=== PATIENT | female | born 1985 | race Caucasian/White ===

== ENCOUNTER 2016-11-04 17:26 | Emergency (ER) | payer OTHER ==
[~2016-11-04 17:26] MED LIST: SENN1TAB11 PO
[2016-11-04 17:27] VITALS: BP 131/74; PULSE 118; RESP 18; TEMP 97.3; O2SAT 99
[2016-11-04] MEDS ORDERED: SODIUM CHLOR 0.9% 1000 ML INJ 1,000 ML IV SCH (17:39)
[2016-11-04] MEDS ORDERED: SODIUM CHLORIDE 0.9% FLUSH 10 ML FLUSH IV FLUSH PRN (17:45)
[2016-11-04] MEDS ORDERED: KETOROLAC TROMETHAMINE 30 MG/ML (IVP) VIAL IVP ONE (17:45)
[2016-11-04] MEDS ORDERED: ONDANSETRON HCL 4 MG/2 ML VIAL IVP ONE (17:45)
[2016-11-04 17:46] VITALS: O2SAT 100
[2016-11-04 18:00] LABS: AUTOMATED NEUTROPHIL # 1.1 TH/MM3 (1.8-7.7); BASOPHIL % 0.9 % (0.0-2.0); EOSINOPHIL % 0.9 % (0.0-4.0); HEMATOCRIT 43.9 % (35.0-46.0); HEMO FLAGS DIFF FINAL; LYMPH % 40.9 % (9.0-44.0); LYMPHOCYTE # 0.9 TH/MM3 (1.0-4.8); MEAN CELL VOLUME 91.2 FL (80.0-100.0); MEAN CORPUSCULAR HEMOGLOBIN 29.9 PG (27.0-34.0); MEAN CORPUSCULAR HGB CONC 32.8 % (32.0-36.0); MONO % 10.9 % (0.0-8.0); NEUT % 46.4 % (16.0-70.0); PLATELET COUNT 133 TH/MM3 (150-450); RED BLOOD COUNT 4.81 MIL/MM3 (4.00-5.30); RED CELL DISTRIBUTION WIDTH 13.3 % (11.6-17.2); WHITE BLOOD COUNT 2.3 TH/MM3 (4.0-11.0)
--- NOTE | 2016-11-04 18:10 | PD ---
HPI Chief Complaint: Abdominal Pain Time Seen by Provider: 17:34 Travel History International Travel<30 days: No Contact w/Intl Traveler<30days: No Traveled to known affect area: No History of Present Illness HPI The patient is a 31-year-old female who presents emergency department for abdominal pain. The patient is a 3 day history of right upper quadrant abdominal pain that radiates to the right back and is associated with nausea. The patient does note a decreased appetite but denies any vomiting. The patient has minimal dysuria but denies any frequency, urgency, hematuria, vaginal discharge, or vaginal bleeding. Last missed a cycle was one to 2 weeks ago. The patient's only previous abdominal surgery was ventral hernia repair. The patient denies any history pancreatitis. She does note the pain is worse with coughing, palpation, but is unsure of its worse with eating as she's had decreased appetite for the last 3 days secondary to persistent nausea. The patient recently moved to the local area from [place] and does not have a local primary physician. Patient also notes fevers as high as 103 at home. PFSH Past Medical History Anxiety: Yes Depression: Yes Gastrointestinal Disorders: Yes ( Hx of gall stones) ?: Not : 2 Para: 1 Miscarriage: 0 : 0 Past Surgical History Other Surgery: Yes (ventral hernia) Social History Alcohol Use: Yes (occasional) Tobacco Use: Yes (5 cig's per day) Substance Use: No Allergies-Medications (Allergen,Severity, Reaction): Coded Allergies: Bee Sting (Verified Allergy, Severe, 11/04/16) Reported Meds & Prescriptions Reported Meds & Active Scripts Active Zofran Odt (Ondansetron Odt) 4 Mg Tab 4 Mg SL Q6HR PRN Review of Systems Except as stated in HPI: all other systems reviewed are Neg General / Constitutional: Positive: Fever HENT: No: Lightheadedness Cardiovascular: No: Chest Pain or Discomfort Respiratory: Positive: Cough, No: Shortness of Breath Gastrointestinal: Positive: Nausea, Abdominal Pain, No: Vomiting, Diarrhea Genitourinary: Positive: Dysuria, No: Urgency, Frequency, Hematuria, Discharge , Vaginal Bleeding Musculoskeletal: No: Myalgias, Arthralgias Neurologic: No: Dizziness Physical Exam Narrative GENERAL: Awake, alert, pleasant 31 year-old female who appears her stated age and is in no acute respiratory distress. SKIN: Focused skin assessment warm/dry. HEAD: Atraumatic. Normocephalic. EYES: Pupils equal and round. No scleral icterus. No injection or drainage. ENT: No nasal bleeding or discharge. Slightly dry mucous members. NECK: Trachea midline. No JVD. CARDIOVASCULAR: Regular, tachycardic with a heart rate at 115. RESPIRATORY: No accessory muscle use. Clear to auscultation. Breath sounds equal bilaterally. GASTROINTESTINAL: Abdomen tender to palpation right upper quadrant. Back: Mild right CVA tenderness. MUSCULOSKELETAL: No obvious deformities. No clubbing. No cyanosis. No edema. NEUROLOGICAL: Awake and alert. No obvious cranial nerve deficits. Motor grossly within normal limits. Normal speech. PSYCHIATRIC: Appropriate mood and affect; insight and judgment normal. Data Data Last Documented VS Vital Signs Date Time Temp Pulse Resp B/P Pulse Ox O2 Delivery O2 Flow Rate FiO2 11/04/16 19:02 97 16 120/60 97 Room Air 11/04/16 17:27 97.3 Orders Complete Blood Count With Diff (11/04/16 17:39) Comprehensive Metabolic Panel (11/04/16 17:39) Lipase (11/04/16 17:39) Urinalysis - C+S If Indicated (11/04/16 17:39) Us Abdomen Gallbladder (11/04/16 ) Iv Access Insert/Monitor (11/04/16 17:39) Ecg Monitoring (11/04/16 17:39) Oximetry (11/04/16 17:39) Ondansetron Inj (Zofran Inj) (11/04/16 17:45) Sodium Chlor 0.9% 1000 Ml Inj (Ns 1000 M (11/04/16 17:39) Sodium Chloride 0.9% Flush (Ns Flush) (11/04/16 17:45) Ketorolac Inj (Toradol Inj) (11/04/16 17:45) Sodium Chlor 0.9% 1000 Ml Inj (Ns 1000 M (11/04/16 19:00) Morphine Inj (Morphine Inj) (11/04/16 19:15) Ondansetron Inj (Zofran Inj) (11/04/16 19:15) Potassium Chloride (Kcl) (11/04/16 19:15) Labs Laboratory Tests Test 11/04/16 11/04/16 17:55 19:45 White Blood Count 2.3 TH/MM3 Red Blood Count 4.81 MIL/MM3 Hemoglobin 14.4 GM/DL Hematocrit 43.9 % Mean Corpuscular Volume 91.2 FL Mean Corpuscular Hemoglobin 29.9 PG Mean Corpuscular Hemoglobin 32.8 % Concent Red Cell Distribution Width 13.3 % Platelet Count 133 TH/MM3 Mean Platelet Volume 8.1 FL Neutrophils (%) (Auto) 46.4 % Lymphocytes (%) (Auto) 40.9 % Monocytes (%) (Auto) 10.9 % Eosinophils (%) (Auto) 0.9 % Basophils (%) (Auto) 0.9 % Neutrophils # (Auto) 1.1 TH/MM3 Lymphocytes # (Auto) 0.9 TH/MM3 Monocytes # (Auto) 0.3 TH/MM3 Eosinophils # (Auto) 0.0 TH/MM3 Basophils # (Auto) 0.0 TH/MM3 CBC Comment DIFF FINAL Differential Comment Sodium Level 136 MEQ/L Potassium Level 3.2 MEQ/L Chloride Level 99 MEQ/L Carbon Dioxide Level 30.7 MEQ/L Anion Gap 6 MEQ/L Blood Urea Nitrogen 5 MG/DL Creatinine 0.87 MG/DL Estimat Glomerular Filtration 75 ML/MIN Rate Random Glucose 120 MG/DL Calcium Level 8.2 MG/DL Total Bilirubin 0.2 MG/DL Aspartate Amino Transf 36 U/L (AST/SGOT) Alanine Aminotransferase 37 U/L (ALT/SGPT) Alkaline Phosphatase 57 U/L Total Protein 7.4 GM/DL Albumin 3.4 GM/DL Lipase 157 U/L Urine Color LIGHT-YELLOW Urine Turbidity CLEAR Urine pH 6.5 Urine Specific [place] 1.005 Urine Protein NEG mg/dL Urine Glucose (UA) NEG mg/dL Urine Ketones NEG mg/dL Urine Occult Blood NEG Urine Nitrite NEG Urine Bilirubin NEG Urine Urobilinogen LESS THAN 2.0 MG/DL Urine Leukocyte Esterase NEG Urine WBC LESS THAN 1 /hpf Urine Squamous Epithelial 1 /hpf Cells Urine Bacteria RARE /hpf Microscopic Urinalysis Comment CULT NOT INDICATED MDM Medical Decision Making Medical Screen Exam Complete: Yes Emergency Medical Condition: Yes Medical Record Reviewed: Yes Interpretation(s) Laboratory Tests Test 11/04/16 17:55 White Blood Count 2.3 TH/MM3 Red Blood Count 4.81 MIL/MM3 Hemoglobin 14.4 GM/DL Hematocrit 43.9 % Mean Corpuscular Volume 91.2 FL Mean Corpuscular Hemoglobin 29.9 PG Mean Corpuscular Hemoglobin 32.8 % Concent Red Cell Distribution Width 13.3 % Platelet Count 133 TH/MM3 Mean Platelet Volume 8.1 FL Neutrophils (%) (Auto) 46.4 % Lymphocytes (%) (Auto) 40.9 % Monocytes (%) (Auto) 10.9 % Eosinophils (%) (Auto) 0.9 % Basophils (%) (Auto) 0.9 % Neutrophils # (Auto) 1.1 TH/MM3 Lymphocytes # (Auto) 0.9 TH/MM3 Monocytes # (Auto) 0.3 TH/MM3 Eosinophils # (Auto) 0.0 TH/MM3 Basophils # (Auto) 0.0 TH/MM3 CBC Comment DIFF FINAL Differential Comment Sodium Level 136 MEQ/L Potassium Level 3.2 MEQ/L Chloride Level 99 MEQ/L Carbon Dioxide Level 30.7 MEQ/L Anion Gap 6 MEQ/L Blood Urea Nitrogen 5 MG/DL Creatinine 0.87 MG/DL Estimat Glomerular Filtration 75 ML/MIN Rate Random Glucose 120 MG/DL Calcium Level 8.2 MG/DL Total Bilirubin 0.2 MG/DL Aspartate Amino Transf 36 U/L (AST/SGOT) Alanine Aminotransferase 37 U/L (ALT/SGPT) Alkaline Phosphatase 57 U/L Total Protein 7.4 GM/DL Albumin 3.4 GM/DL Lipase 157 U/L Ultrasound reveals a normal examination Differential Diagnosis Differential diagnosis includes acute cholecystitis, symptomatic cholelithiasis , choledocholithiasis, pancreatitis, gastritis, peptic ulcer disease, lower lobe pneumonia, pyelonephritis, nephrolithiasis. Narrative Course IV was established, labs are drawn and sent, and the patient was placed on cardiac telemetry monitoring and continuous pulse oximetry monitoring. Ultrasound of the gallbladder was ordered. The patient states narcotics make her sick and requests no appears. Therefore, the patient was administered Zofran, Toradol, and IV fluids. The patient's white count is mildly low, platelets are also low, she denies any history of chronic alcohol use or HIV. LFTs and lipase are unremarkable. Ultrasound is negative for cholelithiasis/ cholecystitis. The patient was reevaluated at 6:52 PM, her symptoms had significantly improved. She was still tachycardic at 100, therefore, second liter of IV fluids were ordered. The patient has a UA pending, will be signed off to the oncoming physician at 7 PM. If UA is negative and the patient tolerates a by mouth challenge, she can be discharged home. Diagnosis Primary Impression: Abdominal pain Qualified Code: R10.11 - Right upper quadrant abdominal pain Additional Impression: Nausea Patient Instructions: General Instructions Med/Other Pt SpecificInfo: Prescription(s) given Scripts Ondansetron Odt (Zofran Odt)4 Mg Tab4 Mg SL Q6HR PRN (Nausea/Vomiting) #7 TAB Ref 0 Prov:Fer Gordon MD 11/04/16 Condition: Stable Fer Gordon MD Nov 04, 2016 18:10
[2016-11-04 18:23] LABS: ALKALINE PHOSPHATASE 57 U/L (45-117); TOTAL BILIRUBIN ADULT 0.2 MG/DL (0.2-1.0)
[2016-11-04 18:28] LABS: ALT (GPT) 37 U/L (10-53); ANION GAP 6 MEQ/L (5-15); AST (GOT) 36 U/L (15-37); BICARBONATE 30.7 MEQ/L (21.0-32.0); BLOOD UREA NITROGEN 5 MG/DL (7-18); CHLORIDE 99 MEQ/L (98-107); GLOMERULAR FILTRATION RATE 75 ML/MIN (>89); POTASSIUM 3.2 MEQ/L (3.5-5.1); SODIUM (NA) 136 MEQ/L (136-145)
--- NOTE | 2016-11-04 18:45 | RADRPT ---
EXAM DATE/TIME: 11/04/2016 18:11 [facility] COMPARISON: No previous studies available for comparison. INDICATIONS : Right upper quadrant pain. MEDICAL HISTORY : . Cholelithiasis. Depression. Anxiety. SURGICAL HISTORY : Ventral hernia repair. ENCOUNTER: Initial ACUITY: 1 day PAIN SCORE: 6/10 LOCATION: Right upper quadrant MEASUREMENTS: LIVER: 15.9 cm length COMMON DUCT: 4 mm RIGHT KIDNEY: 10.2 x 5.8 x 4.5 cm FINDINGS: LIVER: Normal echotexture without focal lesion or ductal dilatation. COMMON DUCT: No intraluminal mass or stone visualized. GALLBLADDER: Contains no stones, demonstrates no wall thickening or pericholecystic fluid. PANCREAS: The visualized portions are within normal limits. RIGHT KIDNEY: No evidence of hydronephrosis, stone, or mass. CONCLUSION: Normal examination for a patient of this age. Michael Rapp MD on November 04, 2016 at 18:40 Board Certified Radiologist. This report was verified electronically.
[2016-11-04] MEDS ORDERED: ZOFR4TAB3 SL (18:53)
[2016-11-04] MEDS ORDERED: SODIUM CHLOR 0.9% 1000 ML INJ 1,000 ML IV ONE (19:00)
[2016-11-04 19:02] VITALS: BP 120/60; PULSE 97; RESP 16; O2SAT 97
--- NOTE | 2016-11-04 19:10 | PD ---
Physical Exam Narrative General: The patient is a well-developed well-nourished female in no acute distress. Head and Neck exam: Head is normocephalic atraumatic. Eyes: EOMI, pupils are equal round and reactive to light. Nose: Midline septum with pink mucous membranes Mouth: Dentition unremarkable. Moist mucus membranes. Posterior oropharynx is not erythematous. No tonsillar hypertrophy. Uvula midline. Airway patent. Neck: No palpable lymphadenopathy. No nuchal rigidity. No thyromegaly. Cardiovascular: Regular rate and rhythm without murmurs, gallops, or rubs. No pulse deficit to the extremities. Lungs: Clear to auscultation bilaterally. No wheezes, rhonchi, or rales. Abdomen: Soft, with tenderness on palpation in the right upper quadrant of the abdomen, no other tenderness on palpation of the other quadrants of the abdomen. No guarding, rebound, or rigidity. Negative Tennille sign. Normal bowel sounds are audible. No point tenderness over McBurney's point. Extremities: No clubbing, cyanosis, or edema. 2+ pulses in all 4 extremities. No calf tenderness on palpation. Back: No spinous process tenderness to palpation. No costovertebral angle tenderness to palpation. Neurologic Exam: Grossly nonfocal. Skin Exam: No rash noted. Intact skin that is warm and dry. Data Data Last Documented VS Vital Signs Date Time Temp Pulse Resp B/P Pulse Ox O2 Delivery O2 Flow Rate FiO2 11/04/16 19:02 97 16 120/60 97 Room Air 11/04/16 17:27 97.3 Orders Complete Blood Count With Diff (11/04/16 17:39) Comprehensive Metabolic Panel (11/04/16 17:39) Lipase (11/04/16 17:39) Urinalysis - C+S If Indicated (11/04/16 17:39) Us Abdomen Gallbladder (11/04/16 ) Iv Access Insert/Monitor (11/04/16 17:39) Ecg Monitoring (11/04/16 17:39) Oximetry (11/04/16 17:39) Ondansetron Inj (Zofran Inj) (11/04/16 17:45) Sodium Chlor 0.9% 1000 Ml Inj (Ns 1000 M (11/04/16 17:39) Sodium Chloride 0.9% Flush (Ns Flush) (11/04/16 17:45) Ketorolac Inj (Toradol Inj) (11/04/16 17:45) Sodium Chlor 0.9% 1000 Ml Inj (Ns 1000 M (11/04/16 19:00) Morphine Inj (Morphine Inj) (11/04/16 19:15) Ondansetron Inj (Zofran Inj) (11/04/16 19:15) Potassium Chloride (Kcl) (11/04/16 19:15) Labs Laboratory Tests Test 11/04/16 11/04/16 17:55 19:45 White Blood Count 2.3 TH/MM3 Red Blood Count 4.81 MIL/MM3 Hemoglobin 14.4 GM/DL Hematocrit 43.9 % Mean Corpuscular Volume 91.2 FL Mean Corpuscular Hemoglobin 29.9 PG Mean Corpuscular Hemoglobin 32.8 % Concent Red Cell Distribution Width 13.3 % Platelet Count 133 TH/MM3 Mean Platelet Volume 8.1 FL Neutrophils (%) (Auto) 46.4 % Lymphocytes (%) (Auto) 40.9 % Monocytes (%) (Auto) 10.9 % Eosinophils (%) (Auto) 0.9 % Basophils (%) (Auto) 0.9 % Neutrophils # (Auto) 1.1 TH/MM3 Lymphocytes # (Auto) 0.9 TH/MM3 Monocytes # (Auto) 0.3 TH/MM3 Eosinophils # (Auto) 0.0 TH/MM3 Basophils # (Auto) 0.0 TH/MM3 CBC Comment DIFF FINAL Differential Comment Sodium Level 136 MEQ/L Potassium Level 3.2 MEQ/L Chloride Level 99 MEQ/L Carbon Dioxide Level 30.7 MEQ/L Anion Gap 6 MEQ/L Blood Urea Nitrogen 5 MG/DL Creatinine 0.87 MG/DL Estimat Glomerular Filtration 75 ML/MIN Rate Random Glucose 120 MG/DL Calcium Level 8.2 MG/DL Total Bilirubin 0.2 MG/DL Aspartate Amino Transf 36 U/L (AST/SGOT) Alanine Aminotransferase 37 U/L (ALT/SGPT) Alkaline Phosphatase 57 U/L Total Protein 7.4 GM/DL Albumin 3.4 GM/DL Lipase 157 U/L Urine Color LIGHT-YELLOW Urine Turbidity CLEAR Urine pH 6.5 Urine Specific [place] 1.005 Urine Protein NEG mg/dL Urine Glucose (UA) NEG mg/dL Urine Ketones NEG mg/dL Urine Occult Blood NEG Urine Nitrite NEG Urine Bilirubin NEG Urine Urobilinogen LESS THAN 2.0 MG/DL Urine Leukocyte Esterase NEG Urine WBC LESS THAN 1 /hpf Urine Squamous Epithelial 1 /hpf Cells Urine Bacteria RARE /hpf Microscopic Urinalysis Comment CULT NOT INDICATED MDM Medical Record Reviewed: Yes Supervised Visit with ESTEFANIA: No Interpretation(s) Last Impressions Gall Bladder Ultrasound 11/04/16 0000 Signed Impressions: Service Date/Time: Friday, November 04, 2016 18:11 - CONCLUSION: Normal examination for a patient of this age. Michael Rapp MD Narrative Course During the course of the patients emergency department visit, the patients history, examination, and differential diagnosis were reviewed with the patient. The patient had IV access obtained and blood work sent for analysis. The patient's case was checked out to me by Dr. Gordon. He requested that I review the patient's urinalysis. The patient presented with right upper quadrant/right flank pain with reported fever earlier in the day. The patient was initially provided normal saline 1 L IV fluid bolus, Zofran 4 mg IV, Toradol 30 mg IV. The patient was given a second liter of normal saline during her evaluation as she has yet to produce a urine sample for analysis. The patients laboratory studies were reviewed and remarkable for a white count of 2.3, hemoglobin 14.4, platelets 133 with a monocytosis at 10.9 suggestive of a viral process. CMP is remarkable for potassium of 3.2 which will be supplemented orally, BUN 5, glucose 120, lipase 157 Radiology studies were reviewed and remarkable for an ultrasound of the gallbladder that shows a normal examination, no acute abnormality noted. The patient had continued discomfort and was given morphine 4 mg IV and a repeat dose of Zofran 4 mg IV. Urinalysis is unremarkable. The patient will be discharged with prescription for Zofran for nausea. She is instructed to push fluids with an electrolyte rich solution such as Gatorade or Pedialyte. The patient is resting comfortably and feels better, is alert and in no distress. The patients results and examination findings were discussed with the patient. The repeat examination is unremarkable and benign. The history, exam, diagnostic testing, and current condition do not suggest any significant pathology to warrant further testing, continued ED treatment, admission, or surgical evaluation at this point. The vital signs have been stable. The patient does not have uncontrollable pain, intractable vomiting, or other significant symptoms. The patient's condition is stable and appropriate for discharge. The patient will pursue further outpatient evaluation with a primary care physician or other designated or consulting physician as indicated in the discharge instructions. The patient expressed understanding and was agreeable with this plan. Diagnosis Primary Impression: Abdominal pain Qualified Code: R10.11 - Right upper quadrant abdominal pain Additional Impression: Nausea Referrals: Primary Care Physician 2 days Patient Instructions: General Instructions, Viral Syndrome (ED) Departure Forms: Tests/Procedures, Work Release Enter return to work date: Nov 06, 2016 Med/Other Pt SpecificInfo: Prescription(s) given Scripts Ondansetron Odt (Zofran Odt)4 Mg Tab4 Mg SL Q6HR PRN (Nausea/Vomiting) #7 TAB Ref 0 Prov:Fer Gordon MD 11/04/16 Disposition: 01 DISCHARGE HOME Condition: Stable Christa Roman MD Nov 04, 2016 19:10
[2016-11-04] MEDS ORDERED: POTASSIUM CHLORIDE 20 MEQ CONTROLLED RELEASE TAB PO ONE (19:15)
[2016-11-04] MEDS ORDERED: ONDANSETRON HCL 4 MG/2 ML VIAL IV PUSH ONE (19:15)
[2016-11-04] MEDS ORDERED: MORPHINE SULFATE 4 MG/ML INJ IV PUSH ONE (19:15)
[2016-11-04 20:00] LABS: BACTERIA, URINE RARE /hpf; BLOOD, URINE NEG (NEG); COMMENT (UR) CULT NOT INDICATED; CULTURE IF INDICATED CULT NOT INDICATED; GLUCOSE,URINE NEG (NEG); KETONE, URINE NEG (NEG); NITRITE,URINE NEG (NEG); PH, URINE 6.5 (5.0-8.5); SQUAMOUS EPITHELIAL CELL URINE 1 /hpf (0-5); URINE COLOR LIGHT-YELLOW (YELLW/STRAW)
== END 2016-11-04 20:44 | disposition home or self-care (01) ==
LOC: NEPE 17:26
DX: R10.11 Right upper quadrant pain (principal); Z72.0 Tobacco use
CPT/HCPCS: 76705; 80053; 81001; 83690; 85025; 96361; 96374; 96375; 99285; J1885; J2270; J2405; J7030

== ENCOUNTER 2017-10-14 16:07 | Emergency (ER) | payer SELFPAY ==
[~2017-10-14] VITALS: Ht 162.6 cm; Wt 60.0 kg
[~2017-10-14 16:07] MED LIST changes: -SENN1TAB11 PO; +ZOFR4TAB3 SL
[2017-10-14 16:09] VITALS: BP 112/67; PULSE 112; RESP 16; TEMP 97.8; O2SAT 99
[2017-10-14] MEDS ORDERED: SODIUM CHLOR 0.9% 1000 ML INJ 1,000 ML IV SCH (16:31)
--- NOTE | 2017-10-14 16:43 | PD ---
HPI Chief Complaint: GI Complaint Time Seen by Provider: 16:23 Travel History International Travel<30 days: No Contact w/Intl Traveler<30days: No Traveled to known affect area: No History of Present Illness HPI Patient is a 32-year-old female presenting to the emergency department for evaluation of abdominal pain, nausea, vomiting and diarrhea. Patient states her symptoms started Thursday night after eating in a [place] buffet. Other members of her family ate there as well with no issues. Patient reports subjective fevers and chills. Patient states every time she eats something she becomes nauseated and wants to vomit. She also states that when she eats something it runs right through her and she has a watery bowel movement. She reports lower abdominal pain and cramping. Patient states her pain is a 5 out of 10, and cramping in nature. Symptoms are intermittent but constant. Symptom onset was fairly sudden, symptoms are moderate in nature. No alleviating factors other than avoiding oral intake. PFSH Past Medical History Anxiety: Yes Depression: Yes Gastrointestinal Disorders: Yes ( Hx of gall stones) Influenza Vaccination: No ?: Not LMP: 10/07/17 : 2 Para: 1 Miscarriage: 0 : 0 Past Surgical History Other Surgery: Yes (ventral hernia) Social History Alcohol Use: Yes (occasional) Tobacco Use: Yes (1/2 PPD) Substance Use: Yes (MARIJUANA) Allergies-Medications (Allergen,Severity, Reaction): Coded Allergies: bee venom protein (honey bee) (Unverified Allergy, Severe, 12/16/16) Reported Meds & Prescriptions Reported Meds & Active Scripts Active Zofran Odt (Ondansetron Odt) 4 Mg Tab 4 Mg SL Q6HR PRN Macrobid (Nitrofurantoin Monohydrate Macrocrystals) 100 Mg Capsule 100 Mg PO BID Zofran Odt (Ondansetron Odt) 4 Mg Tab 4 Mg SL Q6HR PRN Review of Systems Except as stated in HPI: all other systems reviewed are Neg General / Constitutional: Positive: Fever, Chills Gastrointestinal: Positive: Nausea, Vomiting, Diarrhea, Abdominal Pain, Loss of Appetite Physical Exam Narrative GENERAL: Thin, well-developed, alert female. Presenting in no acute distress. SKIN: Warm and dry. HEAD: Atraumatic. Normocephalic. EYES: Pupils equal and round. No scleral icterus. No injection or drainage. ENT: No nasal bleeding or discharge. Mucous membranes pink and moist. NECK: Trachea midline. No JVD. CARDIOVASCULAR: Tachycardic RESPIRATORY: No accessory muscle use. Clear to auscultation. Breath sounds equal bilaterally. GASTROINTESTINAL: Abdomen soft, tender to palpation bilateral lower quadrants nondistended. Hepatic and splenic margins not palpable. Hypoactive bowel sounds. MUSCULOSKELETAL: Extremities without clubbing, cyanosis, or edema. No obvious deformities. NEUROLOGICAL: Awake and alert. No obvious cranial nerve deficits. Motor grossly within normal limits. Five out of 5 muscle strength in the arms and legs. Normal speech. PSYCHIATRIC: Appropriate mood and affect; insight and judgment normal. Data Data Last Documented VS Vital Signs Date Time Temp Pulse Resp B/P (MAP) Pulse Ox O2 Delivery O2 Flow Rate FiO2 10/14/17 18:44 107 19 140/81 (100) 98 Room Air 10/14/17 16:09 97.8 Orders Orders Complete Blood Count With Diff (10/14/17 16:31) Comprehensive Metabolic Panel (10/14/17 16:31) Lipase (10/14/17 16:31) Urinalysis - C+S If Indicated (10/14/17 16:31) Ct Abd/Pel W Iv Contrast(Rout) (10/14/17 16:31) Iv Access Insert/Monitor (10/14/17 16:31) Ecg Monitoring (10/14/17 16:31) Oximetry (10/14/17 16:31) NPO (10/14/17 16:31) Sodium Chlor 0.9% 1000 Ml Inj (Ns 1000 M (10/14/17 16:31) Sodium Chloride 0.9% Flush (Ns Flush) (10/14/17 16:45) Ondansetron Odt (Zofran Odt) (10/14/17 16:45) Urine Culture (10/14/17 16:45) Iohexol 350 Inj (Omnipaque 350 Inj) (10/14/17 17:29) Metronidazole 500 Mg Inj (Flagyl 500 Mg (10/14/17 18:30) Ciprofloxacin 400 Mg Premix (Cipro 400 M (10/14/17 18:30) C Diff Toxin Pcr (10/14/17 18:32) Sodium Chlor 0.9% 1000 Ml Inj (Ns 1000 M (10/14/17 18:45) Ed Discharge Order (10/14/17 21:13) Virus Culture Non Respiratory (10/14/17 19:25) Labs Laboratory Tests Test 10/14/17 16:45 10/14/17 19:25 White Blood Count 11.1 TH/MM3 Red Blood Count 4.52 MIL/MM3 Hemoglobin 13.9 GM/DL Hematocrit 40.2 % Mean Corpuscular Volume 89.0 FL Mean Corpuscular Hemoglobin 30.8 PG Mean Corpuscular Hemoglobin Concent 34.6 % Red Cell Distribution Width 13.4 % Platelet Count 299 TH/MM3 Mean Platelet Volume 7.5 FL Neutrophils (%) (Auto) 75.8 % Lymphocytes (%) (Auto) 15.3 % Monocytes (%) (Auto) 7.9 % Eosinophils (%) (Auto) 0.4 % Basophils (%) (Auto) 0.6 % Neutrophils # (Auto) 8.4 TH/MM3 Lymphocytes # (Auto) 1.7 TH/MM3 Monocytes # (Auto) 0.9 TH/MM3 Eosinophils # (Auto) 0.0 TH/MM3 Basophils # (Auto) 0.1 TH/MM3 CBC Comment DIFF FINAL Differential Comment Urine Color DARK-YELLOW Urine Turbidity HAZY Urine pH 6.0 Urine Specific [place] 1.032 Urine Protein 100 mg/dL Urine Glucose (UA) NEG mg/dL Urine Ketones TRACE mg/dL Urine Occult Blood TRACE Urine Nitrite NEG Urine Bilirubin NEG Urine Urobilinogen LESS THAN 2.0 MG/DL Urine Leukocyte Esterase SMALL Urine RBC 4 /hpf Urine WBC 21 /hpf Urine Squamous Epithelial Cells 14 /hpf Urine Transitional Epithelial Cells 1 /hpf Urine Bacteria MOD /hpf Urine Mucus MANY /lpf Microscopic Urinalysis Comment CULTURE INDICATED Blood Urea Nitrogen 4 MG/DL Creatinine 0.68 MG/DL Random Glucose 114 MG/DL Total Protein 7.6 GM/DL Albumin 3.1 GM/DL Calcium Level 8.7 MG/DL Alkaline Phosphatase 80 U/L Aspartate Amino Transf (AST/SGOT) 19 U/L Alanine Aminotransferase (ALT/SGPT) 31 U/L Total Bilirubin 0.4 MG/DL Sodium Level 134 MEQ/L Potassium Level 3.3 MEQ/L Chloride Level 96 MEQ/L Carbon Dioxide Level 28.1 MEQ/L Anion Gap 10 MEQ/L Estimat Glomerular Filtration Rate 99 ML/MIN Lipase 63 U/L Stool C. difficile Toxin (PCR) NEGATIVE Stl C. difficile Toxin Epiderm 027 PRESUMPTIVE NEGATIVE MDM Medical Decision Making Medical Screen Exam Complete: Yes Emergency Medical Condition: Yes Interpretation(s) Vital Signs Date Time Temp Pulse Resp B/P (MAP) Pulse Ox O2 Delivery O2 Flow Rate FiO2 10/14/17 16:09 97.8 112 16 112/67 (82) 99 Last Impressions Abdomen/Pelvis CT 10/14/17 1631 Signed Impressions: CONCLUSION: 1. Eddy colitis. Raises concern for ulcerative colitis. No obstruction, abscess , or perforation. Laboratory Tests Test 10/14/17 16:45 White Blood Count 11.1 TH/MM3 Red Blood Count 4.52 MIL/MM3 Hemoglobin 13.9 GM/DL Hematocrit 40.2 % Mean Corpuscular Volume 89.0 FL Mean Corpuscular Hemoglobin 30.8 PG Mean Corpuscular Hemoglobin Concent 34.6 % Red Cell Distribution Width 13.4 % Platelet Count 299 TH/MM3 Mean Platelet Volume 7.5 FL Neutrophils (%) (Auto) 75.8 % Lymphocytes (%) (Auto) 15.3 % Monocytes (%) (Auto) 7.9 % Eosinophils (%) (Auto) 0.4 % Basophils (%) (Auto) 0.6 % Neutrophils # (Auto) 8.4 TH/MM3 Lymphocytes # (Auto) 1.7 TH/MM3 Monocytes # (Auto) 0.9 TH/MM3 Eosinophils # (Auto) 0.0 TH/MM3 Basophils # (Auto) 0.1 TH/MM3 CBC Comment DIFF FINAL Differential Comment Urine Color DARK-YELLOW Urine Turbidity HAZY Urine pH 6.0 Urine Specific [place] 1.032 Urine Protein 100 mg/dL Urine Glucose (UA) NEG mg/dL Urine Ketones TRACE mg/dL Urine Occult Blood TRACE Urine Nitrite NEG Urine Bilirubin NEG Urine Urobilinogen LESS THAN 2.0 MG/DL Urine Leukocyte Esterase SMALL Urine RBC 4 /hpf Urine WBC 21 /hpf Urine Squamous Epithelial Cells 14 /hpf Urine Transitional Epithelial Cells 1 /hpf Urine Bacteria MOD /hpf Urine Mucus MANY /lpf Microscopic Urinalysis Comment CULTURE INDICATED Blood Urea Nitrogen 4 MG/DL Creatinine 0.68 MG/DL Random Glucose 114 MG/DL Total Protein 7.6 GM/DL Albumin 3.1 GM/DL Calcium Level 8.7 MG/DL Alkaline Phosphatase 80 U/L Aspartate Amino Transf (AST/SGOT) 19 U/L Alanine Aminotransferase (ALT/SGPT) 31 U/L Total Bilirubin 0.4 MG/DL Sodium Level 134 MEQ/L Potassium Level 3.3 MEQ/L Chloride Level 96 MEQ/L Carbon Dioxide Level 28.1 MEQ/L Anion Gap 10 MEQ/L Estimat Glomerular Filtration Rate 99 ML/MIN Lipase 63 U/L Differential Diagnosis Metabolic abnormality versus gastroenteritis versus diverticulitis versus pancreatitis versus obstruction versus other Narrative Course Patient is a 32-year-old female presenting to emerge department for evaluation of abdominal pain, nausea, vomiting, diarrhea. Patient is tachycardic on arrival, labs and imaging ordered and pending. IV access was established, patient placed on telemetry monitoring continuous pulse oximetry. IV fluids ordered. CBC with a white blood cell count 11.1. Chemistry with a sodium of 134, potassium 3.3. Urinalysis is consistent with UTI. Patient will be started on Macrobid. CT scan the abdomen and pelvis shows pancolitis. Raises concern for ulcerative colitis. No obstruction abscesses or perforation noted. This was discussed with my attending physician. Will attempt to obtain a stool sample for PCR and CDT. Patient is given oral fluid challenge. Heart rate has trended down to 107. Will give patient additional liter of IV fluids now. Patient tolerated oral fluid challenge, she was unable to provide a stool sample. Patient reported feeling better. Patient was encouraged to follow-up with a primary doctor or return to emergency department for any new worsening symptoms. Patient stable for discharge. Findings and plan of care discussed with my attending physician prior to discharge. Diagnosis Primary Impression: Pancolitis Additional Impressions: Diarrhea, infectious, adult Urinary tract infection Qualified Codes: N39.0 - Urinary tract infection, site not specified; R31.9 - Hematuria, unspecified Referrals: Primary Care Physician Patient Instructions: Acute Nausea and Vomiting (ED), General Instructions, Infectious Colitis (ED), Urinary Tract Infection in Women (ED) Additional Instructions: Complete full course of antibiotics as prescribed Maintain adequate fluid intake Maintain a bland, easy to digest diet, increasing as tolerated Follow-up with your primary doctor Return to emergency department for any new or worsening symptoms Med/Other Pt SpecificInfo: Prescription(s) given Scripts Ondansetron Odt (Zofran Odt) 4 Mg Tab 4 MG SL Q6HR Y for Nausea/Vomiting, #10 TAB 0 Refills Prov: Neela Barragan 10/14/17 Nitrofurantoin Monohydrate Macrocrystals (Macrobid) 100 Mg Capsule 100 MG PO BID for Infection, #14 CAP 0 Refills Prov: Neela Barragan 10/14/17 Disposition: 01 DISCHARGE HOME Condition: Stable Neela Barragan Oct 14, 2017 16:43
[2017-10-14] MEDS ORDERED: ONDANSETRON ODT 4 MG TAB PO ONE (16:45)
[2017-10-14] MEDS ORDERED: SODIUM CHLORIDE 0.9% FLUSH 10 ML FLUSH IV FLUSH PRN (16:45)
[2017-10-14 17:10] LABS: AUTOMATED NEUTROPHIL # 8.4 TH/MM3 (1.8-7.7); BASOPHIL # 0.1 TH/MM3 (0-0.2); BASOPHIL % 0.6 % (0.0-2.0); EOSINOPHIL % 0.4 % (0.0-4.0); HEMATOCRIT 40.2 % (35.0-46.0); HEMOGLOBIN 13.9 GM/DL (11.6-15.3); LYMPH % 15.3 % (9.0-44.0); LYMPHOCYTE # 1.7 TH/MM3 (1.0-4.8); MEAN CORPUSCULAR HEMOGLOBIN 30.8 PG (27.0-34.0); MEAN CORPUSCULAR HGB CONC 34.6 % (32.0-36.0); MEAN PLATELET VOLUME 7.5 FL (7.0-11.0); MONO % 7.9 % (0.0-8.0); MONOCYTE # 0.9 TH/MM3 (0-0.9); NEUT % 75.8 % (16.0-70.0); PLATELET COUNT 299 TH/MM3 (150-450); RED BLOOD COUNT 4.52 MIL/MM3 (4.00-5.30); RED CELL DISTRIBUTION WIDTH 13.4 % (11.6-17.2); WHITE BLOOD COUNT 11.1 TH/MM3 (4.0-11.0)
[2017-10-14 17:17] LABS: BACTERIA, URINE MOD /hpf; BILIRUBIN, URINE NEG (NEG); BLOOD, URINE TRACE (NEG); GLUCOSE,URINE NEG (NEG); KETONE, URINE TRACE mg/dL (NEG); MUCUS URINE MANY /lpf (OCC); NITRITE,URINE NEG (NEG); SQUAMOUS EPITHELIAL CELL URINE 14 /hpf (0-5); TRANSITIONAL EPI CELLS, URINE 1 /hpf; URINE COLOR DARK-YELLOW (YELLW/STRAW); URINE LEUKOCYTE ESTERASE SMALL (NEG)
[2017-10-14] MEDS ORDERED: IOHEXOL 350 MG/ML 10 ML VIAL (for RAD DIAG) IVCONTRAST ONE (17:29)
[2017-10-14 17:46] LABS: ALBUMIN 3.1 GM/DL (3.4-5.0); AST (GOT) 19 U/L (15-37); BICARBONATE 28.1 MEQ/L (21.0-32.0); BLOOD UREA NITROGEN 4 MG/DL (7-18); CALCIUM 8.7 MG/DL (8.5-10.1); CHLORIDE 96 MEQ/L (98-107); CREATININE 0.68 MG/DL (0.50-1.00); GLOMERULAR FILTRATION RATE 99 ML/MIN (>89); GLUCOSE,RANDOM 114 MG/DL (74-106); SODIUM (NA) 134 MEQ/L (136-145)
[2017-10-14 17:50] LABS: ALKALINE PHOSPHATASE 80 U/L (45-117); ALT (GPT) 31 U/L (10-53); TOTAL BILIRUBIN ADULT 0.4 MG/DL (0.2-1.0); TOTAL PROTEIN 7.6 GM/DL (6.4-8.2)
--- NOTE | 2017-10-14 17:56 | RADRPT ---
EXAM DATE: 10/14/2017 5:28 PM EDT AGE/SEX: 32 years / Female INDICATIONS: Nausea, vomiting, and diarrhea for 4 days. CLINICAL DATA: This is the patient's initial encounter. Patient reports that signs and symptoms have been present for 4 - 6 days and indicates a pain score of 0/10. MEDICAL/SURGICAL HISTORY: None. . Hernia repair, IUD ORAL CONTRAST: No oral contrast ingested. RADIATION DOSE: 8.07 CTDI (mGy) COMPARISON: No prior exams available for comparison. TECHNIQUE: Multiple contiguous axial images were obtained through the abdomen and pelvis following b olus infusion of 89 ml Omnipaque 350 (iohexol) nonionic water-soluble contrast as a single exam dos e. No oral contrast ingested. Using automated exposure control and adjustment of the mA and/or kV ac cording to patient size, the radiation dose was kept as low as reasonably achievable to obtain optima l diagnostic quality images. FINDINGS: Lower Lungs: The visualized lower lungs are clear. Liver: The liver has a homogeneous density without space-occupying lesion. There is no dilation of th e biliary tree. Spleen: Homogeneous density without enlargement. Pancreas: Unremarkable without mass or calcification. Kidneys: Normal in size and shape. No evidence of mass or hydronephrosis. Adrenal Glands: Unremarkable. Aorta: The aorta and proximal iliac vessels are grossly unremarkable without aneurysmal dilation. Bowel/Mesentery: Diffuse circumferential wall thickening throughout the entire colon with relative s paring of the ascending colon. No significant stranding of the surrounding fat. No obstruction. Fluid -filled loops of nondilated small bowel seen within the lower abdomen. Stomach is unremarkable. No fr ee air or free fluid.. Abdominal Wall: Prior ventral hernia repair utilizing mesh. No recurrent hernia or fluid collection. . Retroperitoneum: No evidence of adenopathy in the retrocrural, para-aortic, or deep pelvic regions. Bladder: Contours are smooth. Reproductive Organs: An IUD is seen. The uterus is anteverted. No abnormal masses or calcifications seen. Inguinal: The inguinal region is unremarkable without evidence of adenopathy. Bony Structures: Unremarkable. CONCLUSION: 1. Eddy colitis. Raises concern for ulcerative colitis. No obstruction, abscess, or perforation. Electronically signed by: Robert Nagy MD 10/14/2017 5:55 PM EDT
[2017-10-14] MEDS ORDERED: metroNIDAZOLE 500 MG INJ 100 ML IV ONE (18:30)
[2017-10-14] MEDS ORDERED: CIPROFLOXACIN 400 MG PREMIX 200 ML IV ONE (18:30)
[2017-10-14 18:44] VITALS: BP 140/81; PULSE 107; RESP 19; O2SAT 98
[2017-10-14] MEDS ORDERED: SODIUM CHLOR 0.9% 1000 ML INJ 1,000 ML IV ONE (18:45)
[2017-10-14] MEDS ORDERED: MACR100C2 PO (18:47)
[2017-10-14] MEDS ORDERED: ZOFR4TAB3 SL (18:51)
--- NOTE | 2017-10-14 21:16 | PD ---
Physical Exam Date Seen by Provider: Oct 14, 2017 Time Seen by Provider: 21:14 Data Data Last Documented VS Vital Signs Date Time Temp Pulse Resp B/P (MAP) Pulse Ox O2 Delivery O2 Flow Rate FiO2 10/14/17 18:44 107 19 140/81 (100) 98 Room Air 10/14/17 16:09 97.8 Orders Orders Complete Blood Count With Diff (10/14/17 16:31) Comprehensive Metabolic Panel (10/14/17 16:31) Lipase (10/14/17 16:31) Urinalysis - C+S If Indicated (10/14/17 16:31) Ct Abd/Pel W Iv Contrast(Rout) (10/14/17 16:31) Iv Access Insert/Monitor (10/14/17 16:31) Ecg Monitoring (10/14/17 16:31) Oximetry (10/14/17 16:31) NPO (10/14/17 16:31) Sodium Chlor 0.9% 1000 Ml Inj (Ns 1000 M (10/14/17 16:31) Sodium Chloride 0.9% Flush (Ns Flush) (10/14/17 16:45) Ondansetron Odt (Zofran Odt) (10/14/17 16:45) Urine Culture (10/14/17 16:45) Iohexol 350 Inj (Omnipaque 350 Inj) (10/14/17 17:29) Metronidazole 500 Mg Inj (Flagyl 500 Mg (10/14/17 18:30) Ciprofloxacin 400 Mg Premix (Cipro 400 M (10/14/17 18:30) Enterovirus Pcr (10/14/17 18:32) C Diff Toxin Pcr (10/14/17 18:32) Sodium Chlor 0.9% 1000 Ml Inj (Ns 1000 M (10/14/17 18:45) Ed Discharge Order (10/14/17 21:13) Labs Laboratory Tests Test 10/14/17 16:45 10/14/17 19:25 White Blood Count 11.1 TH/MM3 Red Blood Count 4.52 MIL/MM3 Hemoglobin 13.9 GM/DL Hematocrit 40.2 % Mean Corpuscular Volume 89.0 FL Mean Corpuscular Hemoglobin 30.8 PG Mean Corpuscular Hemoglobin Concent 34.6 % Red Cell Distribution Width 13.4 % Platelet Count 299 TH/MM3 Mean Platelet Volume 7.5 FL Neutrophils (%) (Auto) 75.8 % Lymphocytes (%) (Auto) 15.3 % Monocytes (%) (Auto) 7.9 % Eosinophils (%) (Auto) 0.4 % Basophils (%) (Auto) 0.6 % Neutrophils # (Auto) 8.4 TH/MM3 Lymphocytes # (Auto) 1.7 TH/MM3 Monocytes # (Auto) 0.9 TH/MM3 Eosinophils # (Auto) 0.0 TH/MM3 Basophils # (Auto) 0.1 TH/MM3 CBC Comment DIFF FINAL Differential Comment Urine Color DARK-YELLOW Urine Turbidity HAZY Urine pH 6.0 Urine Specific [place] 1.032 Urine Protein 100 mg/dL Urine Glucose (UA) NEG mg/dL Urine Ketones TRACE mg/dL Urine Occult Blood TRACE Urine Nitrite NEG Urine Bilirubin NEG Urine Urobilinogen LESS THAN 2.0 MG/DL Urine Leukocyte Esterase SMALL Urine RBC 4 /hpf Urine WBC 21 /hpf Urine Squamous Epithelial Cells 14 /hpf Urine Transitional Epithelial Cells 1 /hpf Urine Bacteria MOD /hpf Urine Mucus MANY /lpf Microscopic Urinalysis Comment CULTURE INDICATED Blood Urea Nitrogen 4 MG/DL Creatinine 0.68 MG/DL Random Glucose 114 MG/DL Total Protein 7.6 GM/DL Albumin 3.1 GM/DL Calcium Level 8.7 MG/DL Alkaline Phosphatase 80 U/L Aspartate Amino Transf (AST/SGOT) 19 U/L Alanine Aminotransferase (ALT/SGPT) 31 U/L Total Bilirubin 0.4 MG/DL Sodium Level 134 MEQ/L Potassium Level 3.3 MEQ/L Chloride Level 96 MEQ/L Carbon Dioxide Level 28.1 MEQ/L Anion Gap 10 MEQ/L Estimat Glomerular Filtration Rate 99 ML/MIN Lipase 63 U/L Stool C. difficile Toxin (PCR) NEGATIVE Stl C. difficile Toxin Epiderm 027 PRESUMPTIVE NEGATIVE [facility] Medical Record Reviewed: Yes Supervised Visit with ESTEFANIA: Yes Interpretation(s) Laboratory Tests Test 10/14/17 16:45 10/14/17 19:25 White Blood Count 11.1 TH/MM3 Red Blood Count 4.52 MIL/MM3 Hemoglobin 13.9 GM/DL Hematocrit 40.2 % Mean Corpuscular Volume 89.0 FL Mean Corpuscular Hemoglobin 30.8 PG Mean Corpuscular Hemoglobin Concent 34.6 % Red Cell Distribution Width 13.4 % Platelet Count 299 TH/MM3 Mean Platelet Volume 7.5 FL Neutrophils (%) (Auto) 75.8 % Lymphocytes (%) (Auto) 15.3 % Monocytes (%) (Auto) 7.9 % Eosinophils (%) (Auto) 0.4 % Basophils (%) (Auto) 0.6 % Neutrophils # (Auto) 8.4 TH/MM3 Lymphocytes # (Auto) 1.7 TH/MM3 Monocytes # (Auto) 0.9 TH/MM3 Eosinophils # (Auto) 0.0 TH/MM3 Basophils # (Auto) 0.1 TH/MM3 CBC Comment DIFF FINAL Differential Comment Urine Color DARK-YELLOW Urine Turbidity HAZY Urine pH 6.0 Urine Specific [place] 1.032 Urine Protein 100 mg/dL Urine Glucose (UA) NEG mg/dL Urine Ketones TRACE mg/dL Urine Occult Blood TRACE Urine Nitrite NEG Urine Bilirubin NEG Urine Urobilinogen LESS THAN 2.0 MG/DL Urine Leukocyte Esterase SMALL Urine RBC 4 /hpf Urine WBC 21 /hpf Urine Squamous Epithelial Cells 14 /hpf Urine Transitional Epithelial Cells 1 /hpf Urine Bacteria MOD /hpf Urine Mucus MANY /lpf Microscopic Urinalysis Comment CULTURE INDICATED Blood Urea Nitrogen 4 MG/DL Creatinine 0.68 MG/DL Random Glucose 114 MG/DL Total Protein 7.6 GM/DL Albumin 3.1 GM/DL Calcium Level 8.7 MG/DL Alkaline Phosphatase 80 U/L Aspartate Amino Transf (AST/SGOT) 19 U/L Alanine Aminotransferase (ALT/SGPT) 31 U/L Total Bilirubin 0.4 MG/DL Sodium Level 134 MEQ/L Potassium Level 3.3 MEQ/L Chloride Level 96 MEQ/L Carbon Dioxide Level 28.1 MEQ/L Anion Gap 10 MEQ/L Estimat Glomerular Filtration Rate 99 ML/MIN Lipase 63 U/L Stool C. difficile Toxin (PCR) NEGATIVE Stl C. difficile Toxin Epiderm 027 PRESUMPTIVE NEGATIVE Differential Diagnosis . Narrative Course This is a patient who had been seen earlier by the daytime nurse practitioner. I was asked to discharge the patient after they were taking p.o. fluids. The patient has taken p.o. fluids but has had diarrhea. Stool had been obtained and the C. difficile PCR was negative. The patient is advised to follow-up with her primary care doctor. Patient is stable for discharge. They are also advised to take Imodium AD over-the- counter for diarrhea. Diagnosis Primary Impression: Pancolitis Additional Impressions: Urinary tract infection Qualified Codes: N39.0 - Urinary tract infection, site not specified; R31.9 - Hematuria, unspecified Diarrhea, infectious, adult Referrals: Primary Care Physician Patient Instructions: General Instructions, Urinary Tract Infection in Women ( ED), Acute Nausea and Vomiting (ED), Infectious Colitis (ED) Additional Instruction: Complete full course of antibiotics as prescribed Imodium AD for diarrhea. Maintain adequate fluid intake Maintain a bland, easy to digest diet, increasing as tolerated Follow-up with your primary doctor 1-2 DAYS Return to emergency department for any new or worsening symptoms Med/Other Pt SpecificInfo: Prescription(s) given Scripts Ondansetron Odt (Zofran Odt) 4 Mg Tab 4 MG SL Q6HR Y for Nausea/Vomiting, #10 TAB 0 Refills Prov: Neela Barragan 10/14/17 Nitrofurantoin Monohydrate Macrocrystals (Macrobid) 100 Mg Capsule 100 MG PO BID for Infection, #14 CAP 0 Refills Prov: Neela Barragan 10/14/17 Disposition: 01 DISCHARGE HOME Condition: Stable Michael Alanis Oct 14, 2017 21:16
== END 2017-10-14 21:45 | disposition home or self-care (01) ==
LOC: NEPD 16:07
DX: K51.00 Ulcerative (chronic) pancolitis without complications (principal); N39.0 Urinary tract infection, site not specified; A09 Infectious gastroenteritis and colitis, unspecified; R00.0 Tachycardia, unspecified; F17.200 Nicotine dependence, unspecified, uncomplicated; Z87.19 Personal history of other diseases of the digestive system; Z86.59 Personal history of other mental and behavioral disorders
CPT/HCPCS: 74177; 80053; 81001; 83690; 85025; 87086; 87252; 87493; 99284; J7030; Q9967; 87498